=== PATIENT | female | born 1960 ===

== ENCOUNTER 2024-10-22 12:36 | Emergency (ER) | payer MEDICARE, MEDICAID, SELFPAY ==
--- NOTE | ~2024-10-22 | CT_ITS ---
EXAMINATION: CT HEAD WITHOUT CONTRAST CT CERVICAL SPINE WITHOUT CONTRAST CLINICAL INFORMATION: Fall. Head injury. Neck pain. COMPARISON: Osseous and CT head and neck dated 10/14/2023. TECHNIQUE: Contiguous axial imaging was performed from the skull base to vertex without intravenous administration of contrast. Contiguous axial CT images of the cervical spine were obtained without contrast. Sagittal and coronal reformats were provided and reviewed. This CT examination was performed using dose optimization techniques as appropriate, variously including the following: *Automated exposure control *Adjustment of mA and/or kV according to patient size (this includes techniques or standardized protocols for targeted exams where dose is matched to indication/reason for exam; i.e. extremities or head) *Use of iterative reconstruction technique DLP: 999 mGy-cm FINDINGS: HEAD: There is no evidence of acute intracranial hemorrhage or territorial infarction. No abnormal mass effect or midline shift is seen. Murray to white matter differentiation is well preserved. No extra-axial fluid collections are identified. The ventricles are normal in size. There is no abnormal attenuation within the brain parenchyma. The osseous structures and soft tissues are normal. The mastoid air cells and visualized portions of the paranasal sinuses are well aerated. CERVICAL SPINE: Straightening of the normal cervical lordosis which may be positional or related to muscle spasm. Minimal grade 1 retrolisthesis of C6 on C7, unchanged. No acute fracture or subluxation. No loss of vertebral body height. Mild multilevel loss of intervertebral disc with small endplate osteophytes. Mild bilateral facet arthropathy. No concerning lytic or blastic osseous lesion. Unremarkable prevertebral soft tissues. No abnormal soft tissue mass or fluid collection. Thyroid within normal limits. Visualized lung apices are clear. Mild multilevel bilateral neural foraminal stenosis, not significantly changed. CT/CT cervical spine wo IV con IMPRESSION: HEAD: No acute intracranial hemorrhage or mass effect. CERVICAL SPINE: No acute fracture or subluxation. Straightening of the normal cervical lordosis which may be positional or related to muscle spasm. Mild multilevel degenerative disc disease and bilateral facet arthropathy with mild multilevel bilateral neural foraminal stenosis, not significantly changed. Electronically signed by: Kimo Lange MD 10/22/2024 02:39 PM [facility]
--- NOTE | ~2024-10-22 | XR_ITS ---
EXAMINATION: XR LUMBOSACRAL SPINE CLINICAL INFORMATION: Fall, lumbar spine tenderness R/O fracture COMPARISON: None available. TECHNIQUE: Three views of the lumbosacral spine. FINDINGS: Normal vertebral body alignment. The lumbar lordosis is maintained. No acute fracture or subluxation. No loss of vertebral body. Mild multilevel loss of intervertebral disc and small endplate osteophytes. No concerning ligamentous calcification. Atherosclerotic calcifications. Right upper quadrant surgical clips. XR/XR lumbar spine 2-3V IMPRESSION: 1. No acute fracture or subluxation. 2. Mild multilevel degenerative disc disease. Electronically signed by: Kimo Lange MD 10/22/2024 03:28 PM [facility]
--- NOTE | ~2024-10-22 | CT_ITS ---
EXAMINATION: CT HEAD WITHOUT CONTRAST CT CERVICAL SPINE WITHOUT CONTRAST CLINICAL INFORMATION: Fall. Head injury. Neck pain. COMPARISON: Osseous and CT head and neck dated 10/14/2023. TECHNIQUE: Contiguous axial imaging was performed from the skull base to vertex without intravenous administration of contrast. Contiguous axial CT images of the cervical spine were obtained without contrast. Sagittal and coronal reformats were provided and reviewed. This CT examination was performed using dose optimization techniques as appropriate, variously including the following: *Automated exposure control *Adjustment of mA and/or kV according to patient size (this includes techniques or standardized protocols for targeted exams where dose is matched to indication/reason for exam; i.e. extremities or head) *Use of iterative reconstruction technique DLP: 999 mGy-cm FINDINGS: HEAD: There is no evidence of acute intracranial hemorrhage or territorial infarction. No abnormal mass effect or midline shift is seen. [place] to white matter differentiation is well preserved. No extra-axial fluid collections are identified. The ventricles are normal in size. There is no abnormal attenuation within the brain parenchyma. The osseous structures and soft tissues are normal. The mastoid air cells and visualized portions of the paranasal sinuses are well aerated. CERVICAL SPINE: Straightening of the normal cervical lordosis which may be positional or related to muscle spasm. Minimal grade 1 retrolisthesis of C6 on C7, unchanged. No acute fracture or subluxation. No loss of vertebral body height. Mild multilevel loss of intervertebral disc with small endplate osteophytes. Mild bilateral facet arthropathy. No concerning lytic or blastic osseous lesion. Unremarkable prevertebral soft tissues. No abnormal soft tissue mass or fluid collection. Thyroid within normal limits. Visualized lung apices are clear. Mild multilevel bilateral neural foraminal stenosis, not significantly changed. CT/CT head/brain wo IV con IMPRESSION: HEAD: No acute intracranial hemorrhage or mass effect. CERVICAL SPINE: No acute fracture or subluxation. Straightening of the normal cervical lordosis which may be positional or related to muscle spasm. Mild multilevel degenerative disc disease and bilateral facet arthropathy with mild multilevel bilateral neural foraminal stenosis, not significantly changed. Electronically signed by: Kimo Lange MD 10/22/2024 02:39 PM [facility]
[2024-10-22 12:48] VITALS: BP 96/53; PULSE 84; RESP 19; TEMP 36.4; O2SAT 97; BMI 26.9
--- NOTE | 2024-10-22 12:49 | ED_ITS ---
HPI - Syncope General Chief Complaint: Fall Stated Complaint: SYNCOPAL EPISODE + HEAD STRIKE Time Seen by Provider: 10/22/24 12:37 Source: patient Mode of arrival: EMS Limitations: no limitations History of Present Illness ED Provider: Dr. Abelino Saeed HPI narrative: 64-year-old female history of anxiety, borderline personality disorder, COPD, hypertension, GERD, hyperlipidemia, hypothyroidism, frontal temporal neurocognitive disorder, schizoaffective disorder, atrial fibrillation (on Eliquis) who had a witnessed syncopal episode at her custodial facility ([facility]). The information regarding transfer came from EMS in the ED triage nurse, patient has no memory of her syncopal episode. Apparently the patient was walking in the hallway of her custodial facility. She had a witnessed fall and she struck the right side of her head. It is unclear she had loss of consciousness. Patient currently is complaining of a headache and lower back pain. She denied nausea or vomiting. She denied chest pain, shortness of breath, abdominal pain. Related Data Allergies Allergy/AdvReac Type Severity Reaction Status Date / Time fluoxetine Allergy Unknown Verified 10/22/24 12:54 Iodinated Contrast Media Allergy Hives Verified 10/22/24 13:24 [Contrast Dye] meperidine [From Demerol] Allergy Unknown Verified 10/22/24 12:54 morphine Allergy Unknown Verified 10/22/24 12:54 oxycodone Allergy Unknown Verified 10/22/24 12:54 Penicillins [PCN] Allergy Unknown Verified 10/22/24 12:54 zolpidem Allergy Unknown Verified 10/22/24 12:54 oxycodone Allergy Unknown Uncoded 10/22/24 12:54 oxycodone Allergy Unknown Uncoded 10/22/24 12:54 hydrochloride/polysorbate Review of Systems 2 Review of Systems: Yes all other systems are reviewed and are negative PMFSH Social History Social History Advance Directives: No Advance Directives Information Provided: Yes Physical Exam 2 Vital Signs: Vital Signs: Last Vital Signs Temp 97.7 F 10/22/24 14:53 Pulse 77 10/22/24 14:53 Resp 16 10/22/24 14:53 BP 115/59 L 10/22/24 14:53 Pulse Ox 95 10/22/24 14:53 O2 Del Method Room Air 10/22/24 14:53 BMI result Body Mass Index 26.9 Exam: General: Awake, alert in no distress, C-spine collar in place Head: Normocephalic, tenderness palpation of the right scalp with no obvious hematoma EENT: PERRL, Lids normal, sclera normal, conjunctiva normal, nose normal , ears normal, throat without erythema or exudates Neck: Patient has tenderness palpation over her C-spine and trapezius muscles bilaterally Lung: breath sounds symmetric, no wheezing, rales or rhonchi Chest: symmetric movement, nontender Heart: regular rate and rhythm, normal S1, S2 no murmurs or rubs Abdomen: soft, non-tender, nondistended, normal bowel sounds Back: Patient has tenderness palpation over her lower lumbar and sacral spine, no significant paraspinal muscle tenderness, no ecchymosis noted Extremities: no deformities, moves all extremities symmetrically Neuro: Awake, alert, oriented, normal speech, cranial nerves intact, moves all extremities symmetrically Psych: Pleasant, cooperative Medications Administered Discontinued Medications Generic Name Dose Route Start Last Admin Trade Name Freq PRN Reason Stop Dose Admin Ketorolac Tromethamine 15 mg 10/22/24 12:58 10/22/24 13:14 Ketorolac Tromethamine 15 Mg/Ml Vial IVPUSH 10/22/24 12:59 15 mg ONCE STA Administration Medical Decision Making Medical Decision Making [facility] Narrative: 64-year-old female history of anxiety, borderline personality disorder, COPD, hypertension, GERD, hyperlipidemia, hypothyroidism, frontal temporal neurocognitive disorder, schizoaffective disorder, atrial fibrillation (on Eliquis) who had a witnessed syncopal episode at her custodial facility ([facility]). Physical examination did reveal tenderness palpation of the right side of her scalp as well as C-spine tenderness and lower lumbar vertebrae tenderness. Neurologic exam is otherwise unremarkable Differential diagnosis: ?Includes but is not limited to skull fracture, intracranial bleed, cervical fracture, cervical sprain/strain, lower back contusion, lumbar sacral vertebral fracture, anemia, electrolyte abnormalities, dehydration Following evaluation was ordered: CBC, CMP, magnesium, PTT, troponin, urinalysis, CT head and cervical spine without IV contrast, lumbar spine x-ray Patient was initially treated with the following: Toradol 15 mg IV Course: 16:16 My interpretation patient's laboratory evaluation is as follows: CBC was normal. PTT was normal. Bicarb low 21, otherwise CMP was normal. Troponin was below detectable limits. Urinalysis was positive for protein only no evidence for urinary tract infection. CT scan of the head and cervical spine was unremarkable. Patient was able to walk here in the emergency department without any difficulty. Given her negative workup I do not think that she needs be hospitalized and the patient will be transferred back to her nursing facility by ambulance. Admission/Observation Consideration of admission/observation: Escalation of care including admission/observation considered (Yes) Lab Data MDM Lab Attestation statement: I reviewed the patient's lab results. 10/22/24 13:11 10/22/24 13:35 Labs: Lab Results 10/22/24 10/22/24 10/22/24 Range/Units 13:11 13:35 15:38 WBC 10.3 (4.8-10.8) X10*3/uL RBC 4.25 (4.20-5.50) X10*6/uL Hgb 13.2 (12.0-16.0) g/dl Hct 38.2 (37.0-47.0) % MCV 89.9 (80.0-98.0) fL MCH 31.1 (27.0-33.0) pg MCHC 34.6 (31.0-35.0) g/dl RDW 12.4 (11.0-16.0) % Plt Count 310 (160-400) X10*3/uL MPV 9.4 (9.4-12.3) fL Immature Gran % (Auto) 0.6 H (0.0-0.4) % Neut % (Auto) 76.7 H (45-73) % Lymph % (Auto) 13.9 L (20-40) % [place] % (Auto) 6.8 (2-11) % Eos % (Auto) 1.1 (0-4) % Baso % (Auto) 0.9 (0-2) % Lymph # (Auto) 1.4 (1.2-4.9) X10*3/uL [place] # (Auto) 0.7 (0.1-1.2) X10*3/uL Eos # (Auto) 0.1 (0.0-0.4) X10*3/uL Baso # (Auto) 0.1 (0.0-0.2) X10*3/uL Abs Immat Gran (auto) 0.06 H (0.00-0.03) X10*3/uL Absolute Neuts (auto) 7.9 (2.0-8.3) x10*3/uL Absolute Nucleated RBC 0.000 (0.0-0.012) X10*3/uL Nucleated RBC % (auto) 0.0 (0.0-0.2) /100WBC APTT 26.1 (26.0-36.8) SEC Sodium 135 (135-145) mmol/L Potassium 4.0 (3.3-5.1) mmol/L Chloride 105 (96-108) mmol/L Carbon Dioxide 21 L (22-29) mmol/L Anion Gap 13 (12-20) BUN 8 L (9-16) mg/dL Creatinine 0.70 (0.5-1.4) mg/dL Estim Creat Clear Calc 80.5 Estimated GFR > 60 Random Glucose 102 (60-115) mg/dL Calcium 8.8 (8.4-10.2) mg/dL Magnesium 2.1 (1.6-2.6) mg/dL Total Bilirubin 0.3 (0.0-1.0) mg/dL AST 19 (5-31) U/L ALT 18 (0-31) U/L Alkaline Phosphatase 81 (39-117) U/L Troponin I High Sens < 2.7 (<3.5-17.0) ng/L Total Protein 6.6 (6.5-8.0) g/dL Albumin 3.6 (3.5-5.0) g/dL Urine Color Yellow Urine Appearance Cloudy Urine pH 6.0 (5.0-9.0) Ur Specific [place] 1.025 (1.005-1.025) Urine Protein 100 (2+) H (Neg-Trace) mg/dL Urine Glucose (UA) Negative (Negative) mg/dL Urine Ketones Trace (Negative) mg/dL Urine Blood Negative (Negative) Urine Nitrite Negative (Negative) Ur Leukocyte Esterase Negative (Negative) Urine RBC 0-2 (0-2) /HPF Urine WBC 0-5 (0-5) /HPF Ur Squamous Epith Cells 3-5 (0-2) /HPF Urine Bacteria None Seen (None Seen) Hyaline Casts 6-10 (0-2) /LPF Independent Interpretation I performed an independent interpretation of an: EKG Interpretation: My independent interpretation patient's 12 EKG done at 13:04 hours is as follows: Sinus rhythm with a rate of 80, normal LA interval, QRS duration QTC interval, no ST segment elevation, no ST segment depression, no significant T- wave abnormalities, no PACs, no PVCs. There is artifact in the baseline. Radiology Impression Discussion of test interpretation with radiology: I have reviewed the radiologist's reading. Radiologist Impression: CT head/brain wo IV con IMPRESSION: HEAD: No acute intracranial hemorrhage or mass effect. CERVICAL SPINE: No acute fracture or subluxation. Straightening of the normal cervical lordosis which may be positional or related to muscle spasm. Mild multilevel degenerative disc disease and bilateral facet arthropathy with mild multilevel bilateral neural foraminal stenosis, not significantly changed. Electronically signed by: Kimo Lange MD 10/22/2024 02:39 PM [facility] Dictated By: Kimo Lange MD Independent Historian Clinical information obtained from an independent historian. History obtained from or confirmed by: EMS External Record Review External record reviewed: Outpatient record (long term transfer notes) Discharge Plan Discharge Clinical Impression: Fall, Closed head injury, Neck sprain Patient Disposition: er [facility] Transfer Details: [facility] Instructions: Head Injury (ED) Additional Instructions: The CT scan of your head and cervical spine did not reveal any skull fracture, bleeding in your brain or neck fractures which is reassuring. Your blood work included a CBC, CMP, lipase. These tests were all normal. Your urinalysis was negative for urinary tract infection. Continue taking medications as prescribed by your providers. Follow the head injury instructions. Follow-up with your doctor in 2 days. Please return to the emergency department if your symptoms get worse or if you develop any symptoms that are concerning to you. Print Language: Serbian
--- NOTE | 2024-10-22 13:00 | ECG_ITS ---
Test Reason : SYNCOPE Blood Pressure : / mmHG Vent. Rate : 080 BPM Atrial Rate : 080 BPM P-R Int : 152 ms QRS Dur : 084 ms QT Int : 370 ms P-R-T Axes : 037 075 051 degrees QTc Int : 426 ms Normal sinus rhythm Normal ECG No previous ECGs available Referred By: Abelino Saeed Electronically Signed By:JUAN LUIS OLSON
[2024-10-22] MEDS: Ketorolac Tromethamine 15 MG/ML VIAL IVPUSH (13:14)
[2024-10-22 13:16] LABS: Basophils Absolute Auto 0.1 X10*3/uL (0.0-0.2); Basophils Percent Auto 0.9 % (0-2); Eosinophils Absolute Auto 0.1 X10*3/uL (0.0-0.4); Eosinophils Percent Auto 1.1 % (0-4); Hematocrit 38.2 % (37.0-47.0); Hemoglobin 13.2 g/dl (12.0-16.0); Imm Gran Abs Auto 0.06 X10*3/uL (0.00-0.03); Imm Gran Pct Auto 0.6 % (0.0-0.4); Lymphocytes Absolute Auto 1.4 X10*3/uL (1.2-4.9); Lymphocytes Percent Auto 13.9 % (20-40); MANUAL DIFF FLAG NO; Mean Corpuscular HGB Conc 34.6 g/dl (31.0-35.0); Mean Corpuscular Hemoglobin 31.1 pg (27.0-33.0); Mean Corpuscular Volume 89.9 fL (80.0-98.0); Mean Platelet Volume 9.4 fL (9.4-12.3); Monocytes Absolute Auto 0.7 X10*3/uL (0.1-1.2); Monocytes Percent Auto 6.8 % (2-11); Neutrophils Absolute Auto 7.9 x10*3/uL (2.0-8.3); Neutrophils Percent Auto 76.7 % (45-73); Platelet Count 310 X10*3/uL (160-400); Red Blood Count 4.25 X10*6/uL (4.20-5.50); Red Cell Distribution Width 12.4 % (11.0-16.0); White Blood Count 10.3 X10*3/uL (4.8-10.8)
[2024-10-22 13:46] LABS: Troponin-I High Sensitivity < 2.7 ng/L (<3.5-17.0)
[2024-10-22 13:47] LABS: Partial Thromboplastin Time 26.1 SEC (26.0-36.8)
[2024-10-22 13:53] LABS: Alanine Aminotransferase 18 U/L (0-31); Albumin Level 3.6 g/dL (3.5-5.0); Alkaline Phosphatase 81 U/L (39-117); Anion Gap 13 (12-20); Aspartate Amino Transferase 19 U/L (5-31); Bilirubin Total 0.3 mg/dL (0.0-1.0); Blood Urea Nitrogen 8 mg/dL (9-16); Calcium 8.8 mg/dL (8.4-10.2); Carbon Dioxide 21 mmol/L (22-29); Chloride 105 mmol/L (96-108); Creatinine Clr Calc Pharmacy 80.5; Estimated Glomerular Filt Rate > 60; Glucose Random 102 mg/dL (60-115); Magnesium 2.1 mg/dL (1.6-2.6); Sodium 135 mmol/L (135-145); Total Protein 6.6 g/dL (6.5-8.0)
[2024-10-22 14:53] VITALS: BP 115/59; PULSE 77; RESP 16; TEMP 36.5; O2SAT 95
[2024-10-22 15:46] LABS: Appearance Urine Cloudy; Glucose Urine UA Negative (Negative); Leukocyte Esterase Urine Negative (Negative); Nitrite Urine Negative (Negative); Specific Gravity - Urine 1.025 (1.005-1.025); UMIC TRIGGER UACC YES; Urine Blood Negative (Negative); Urine Ketones Trace mg/dL (Negative); Urine Protein 100 (2+) mg/dL (Neg-Trace)
[2024-10-22 15:49] LABS: Color Urine Yellow
[2024-10-22 16:07] LABS: Bacteria Urine None Seen (None Seen); RBC Urine 0-2 /HPF (0-2); WBC Urine 0-5 /HPF (0-5)
[2024-10-22 16:29] VITALS: BP 121/77; PULSE 74; RESP 18; TEMP 36.7; O2SAT 96
== END 2024-10-22 17:27 ==
PROVIDERS: Emergency Provider Emergency Medicine Emergency Medical Services; PCP Emergency Medicine
DX: S09.90XA Unspecified injury of head, initial encounter (principal); S13.9XXA Sprain of joints and ligaments of unspecified parts of neck, initial encounter; W18.39XA Other fall on same level, initial encounter; I10 Essential (primary) hypertension; E78.5 Hyperlipidemia, unspecified; I48.91 Unspecified atrial fibrillation; Z79.01 Long term (current) use of anticoagulants; Z91.81 History of falling; Y93.89 Activity, other specified; Y92.128 Other place in nursing home as the place of occurrence of the external cause; Y99.9 Unspecified external cause status
CPT/HCPCS: 36415; 70450; 72100; 72125; 80053; 81001; 83735; 84484; 85025; 85730; 93005; 96374; 99284; J1885

== ENCOUNTER → 2024-10-22 13:00 | Outpatient (BNV) | payer MEDICARE, MEDICAID, SELFPAY | PROVIDERS: Emergency Provider Emergency Medicine Emergency Medical Services; PCP Emergency Medicine; Visit Provider Internal Medicine | DX: R55 Syncope and collapse (principal) | CPT/HCPCS: 93010 ==